=== PATIENT | female | born 1970 | race Caucasian/White ===

== ENCOUNTER 2024-03-13 14:04 | Outpatient (REF) | payer OTHER, SELFPAY | END 2024-03-13 14:05 | disposition home or self-care (01) | LOC: HO.BBR 14:04 | PROVIDERS: PCP Family Medicine; Visit Provider Physician Assistant Medical | DX: Z13.89 Encounter for screening for other disorder (principal) ==

== ENCOUNTER 2025-01-24 10:05 | Outpatient (REF) | payer OTHER, SELFPAY | END 2025-01-24 10:06 | disposition home or self-care (01) | LOC: HO.BBR 10:05 | PROVIDERS: PCP Physician Assistant; Visit Provider Physician Assistant Medical | DX: Z13.89 Encounter for screening for other disorder (principal) ==

== ENCOUNTER 2025-04-25 10:04 | Outpatient (REF) | payer OTHER, SELFPAY ==
--- OUTSIDE RECORDS SUMMARY | 2025-04-25 11:29 | XMS_ITS | Encounter Summary ---
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 Name Role Phone Veronica King DO Primary Care Provider [phone] Delicia Simon MD Unavailable Anderson Braun DO Unavailable [phone] Brenda ColemanP Unavailable [phone] Kia Delgado PA-C Unavailable [phone] Encounter Details Date Type Department Care Team (Late st Contact Info) Description 01/12/2022 Procedure Pass [facility] - [address] [place] [address] Social History Tobacco Use Types Packs/Day Years Used Date Smoking Tobacco: Never Smokeless Tobacco: Never Alcohol Use Standard Drinks/Week Comments Yes 3 (1 standard drink = 0.6 oz pur e alcohol) Child or Family Care Answer Date Record ed Do you have problems with on e of the following making it difficult for you to work, study, or receive health care? No 05/20/2021 Education Answer Date Recorded Are you interested in help w ith more adult education (for example, completing high school, GED, job training, learning the [place] language, technical skills, or developing parenting skills)? No 05/20/2021 Food Answer Date Recorded Within the past 6 months we worried whether our food would run out before we got money to buy more. Never True 05/20/2021 Within the past 6 months the food we bought just didn't last and we didn't have enough money to get more. Never True Residential Stability Answer Date Recor ded What is your housing situation today? I have kaya ha 05/20/2021 How many times have you move d in the past 12 months? Zero (I did not move) 05/20/2021 Paying for Meds Answer Date Recorded Do you have trouble paying for medicines? No 05/20/2021 Paying Utility Bills Answer Date Record ed Do you have trouble paying your heating or elect ricity bill? No 05/20/2021 Transportation Answer Date Recorded Has the lack of transportati on kept you from medical appointments or from getting medications? No 05/20/2021 Unemployment Answer Date Recorded Are you currently unemployed or working on a part-time or temporary basis, and looking for work? No 05/20/2021 Comments No Sex and Gender Information Value Date Recorded Sex Assigned at Female 02/17/2020 9:08 PM EDT Legal Sex Female 9:37 PM EDT Gender Identity Female 02/17/2020 9:08 PM EDT Sexual Orientation Straight 02/17/2020 9: 08 PM EDT documented as of this encounter Plan of Treatment Upcoming Encounters Date Type Department Care Team (Late st Contact Info) Description 04/04/2025 Procedure Pass [address] [place] [address] 05/27/2025 9:00 AM EDT Office Visit [facility] [address] [place] [address] Veronica King, DO [address] [facility], [address] [place] [address] 11/26/2025 2:00 PM EDT Appointment [address] [place] [address] Annie Levine NP [address] [place] [address] documented as of this encounter Visit Diagnoses Not on filedocumented in this encounter Additional Health Concerns Assessment Noted Time PHQ-2 Depression Total Score: 0 05/20/20 21 10:22 PM EDT documented as of this encounter Care Teams Automatic Lump Making Machine Tender Relationship Specialty Start Date End Date Veronica King DO [address] [place] [address], [address] [place] [address] PCP - General Family Medicine 08/09/17 Delicia Simon MD [address] [place] [address] [email or web address] Primary Oncologist Hematology and Oncology 07/02/20 Anderson Braun DO [address] [place] [address] [email or web address] Primary Oncologist Hematology and Oncology 03/04/22 Brenda Coleman FNP [address] [place] [address] Nurse Practitioner Medical Oncology 03/04/22 12/04/24 Kia Delgado PA-C [address] [place] [address] Physician Balloon Tester Hematology 09/09/22 documented as of this encounter Additional Source Comments The information contained in this document represents components of the legal health record. It is not the complete legal health record.[facility]
== END 2025-04-25 10:05 | disposition home or self-care (01) ==
LOC: HO.BBR 10:04
PROVIDERS: PCP Physician Assistant; Visit Provider Physician Assistant Medical
DX: Z13.89 Encounter for screening for other disorder (principal)